=== PATIENT | female | born 1985 | race Caucasian/White ===

== ENCOUNTER 2023-01-05 14:53 | Emergency (ER) | payer OTHER ==
[~2023-01-05] VITALS: Ht 165.1 cm; Wt 124.7 kg
[2023-01-05] MEDS ORDERED: AMOX1TAB15 PO (16:00)
[2023-01-05 16:03] VITALS: O2SAT 98
[2023-01-05 16:04] VITALS: BP 180/79; PULSE 110; RESP 18
== END 2023-01-05 16:29 | disposition home or self-care (01) ==
LOC: EDH 14:53
DX: K04.7 Periapical abscess without sinus (principal)

== ENCOUNTER → 2023-09-29 | Outpatient (CLI) | payer OTHER ==
[~2023-09-29] MED LIST: AMOX1TAB15 PO
== END | disposition home or self-care (01) ==
LOC: RAH 08:44
PROVIDERS: ATTEND Nurse Practitioner Adult Health
DX: Z12.31 Encounter for screening mammogram for malignant neoplasm of breast (principal)
CPT/HCPCS: 77067